=== PATIENT | female | born 1940 | race Two or more races ===

== ENCOUNTER 2020-08-21 09:29 | Outpatient (CLI) | payer OTHER | END 2020-08-21 10:17 | disposition home or self-care (01) | LOC: OFIC 805 09:29 | PROVIDERS: ATTEND Otolaryngology Otology & Neurotology | DX: H61.22 Impacted cerumen, left ear (principal) ==

== ENCOUNTER 2025-01-12 12:14 | Emergency (ER) | payer OTHER ==
[~2025-01-12] VITALS: Ht 157.5 cm; Wt 68.0 kg
== END 2025-01-12 13:52 | disposition home or self-care (01) ==
LOC: ER 12:14
DX: R78.81 Bacteremia (principal); Z88.6 Allergy status to analgesic agent; Z88.0 Allergy status to penicillin; Z88.8 Allergy status to other drugs, medicaments and biological substances